=== PATIENT | female | born 1995 | race Two or more races ===

== ENCOUNTER 2025-01-01 04:34 | Emergency (ER) | payer MEDICAID, SELFPAY ==
[2025-01-01 04:37] VITALS: BMI 18.3
[2025-01-01 04:40] VITALS: BP 107/66; PULSE 113; RESP 19; TEMP 36.9; O2SAT 95
--- NOTE | 2025-01-01 04:58 | EDRME_ITS ---
Rapid Medical Screening Exam [facility] Arrival date/time: 01/01/25 04:34 Chief Complaint: Nausea/Vomiting/Diarrhea Vital signs: Vital Signs Temperature 98.5 F 01/01/25 04:40 Pulse Rate 133 H 01/01/25 04:40 Respiratory Rate 19 01/01/25 04:40 Blood Pressure 107/66 01/01/25 04:40 Pulse Oximetry (%) 95 01/01/25 04:40 Oxygen Delivery Method Room Air 01/01/25 04:40 [facility] Narrative: Nausea/vomiting since 2200 last night after eating [employer]. No sick contacts at home. No significant abdominal pain.
[2025-01-01] MEDS: ONDANSETRON ODT 4 MG TABRAP PO (05:26)
[2025-01-01 05:32] LABS: Collection Type, Urine Clean Catch
[2025-01-01] MEDS: SODIUM CHLORIDE 0.9% 1000 ML 1,000 ML 999 ML IV ×2 (05:47→07:00)
[2025-01-01 05:53] LABS: Basophils % (Auto) 0 % (0-2.5); Eosinophils % (Auto) 0 % (0-10); Hematocrit 40.4 % (36.0-46.0); Immature Granulocytes % (Auto) 0 % (0-0); Immature Granulocytes Auto 0.03 Thou/mm3 (0.00-0.00); Lymphocytes # (Auto) 0.4 Thou/mm3 (1.0-4.8); Lymphocytes % (Auto) 4 % (10-50); Mean Corpuscular HGB Conc 34.7 g/dl (31.0-37.0); Mean Corpuscular Hemoglobin 30.2 pg (25.0-35.0); Mean Corpuscular Volume 87 fL (80-100); Monocytes # (Auto) 0.3 Thou/mm3 (0.0-0.8); Monocytes % (Auto) 3 % (0-12); Neutrophils # (Auto) 9.4 Thou/mm3 (1.8-7.7); Neutrophils % (Auto) 92 % (37-80); Nucleated Red Blood Cell % 0 /100 WBC (0); Platelet Count 189 Thou/mm3 (140-440); RDW Standard Deviation 40.4 fL (36.4-46.3); Red Blood Count 4.63 Miln/mm3 (4.00-5.20); White Blood Count 10.2 Thou/mm3 (3.6-11.0)
[2025-01-01 05:53] LABS: Amphetamine/Methamp Scrn,U Negative (Negative); Barbiturate Screen,Urine Negative (Negative); Benzodiazepines Screen,Urine Negative (Negative); Benzoylecgonine Screen, Ur Negative (Negative); Fentanyl Screen,Urine Negative (Negative); Opiate Screen,Urine Negative (Negative); THC Screen,Urine Negative (Negative)
[2025-01-01 05:56] LABS: HCG Qualitative,Urine Negative
[2025-01-01 06:06] LABS: Bilirubin,Urine Negative (Negative); Blood,Urine Negative (Negative); Clarity,Urine Clear (Clear/Hazy); Color,Urine Yellow (Lt Yel-Yel); Glucose, Urine Negative (Negative); Ketones,Urine 2+ (Negative); Leukocyte Esterase,Urine Negative (Negative); Nitrite,Urine Negative (Negative); Protein,Urine Trace (Neg - Trace); RBC,Urine 3 /hpf (0-3); Specific Gravity,Urine 1.032 (1.001-1.035); Squamous Epithelial Cell,Urine 5 /hpf (0-5); Urobilinogen,Urine Negative mg/dL (0.0-1.0); WBC,Urine 1 /hpf (0-5)
[2025-01-01 06:09] VITALS: BP 90/59; PULSE 89; RESP 16; TEMP 37.4; O2SAT 98
[2025-01-01 06:09] LABS: Alanine Aminotransferase 14 U/L (10-49); Albumin, Serum 4.7 gm/dL (3.5-5.0); Albumin/Globulin Ratio 1.7 (1.2-2.2); Alkaline Phosphatase 54 U/L (46-116); Anion Gap 10 (7-16); Aspartate Amino Transferase 21 U/L (0-34); BUN/Creatinine Ratio 25 Ratio (12-20); Bilirubin,Total 1.5 mg/dL (0.3-1.2); Blood Urea Nitrogen 20 mg/dL (9-23); Calcium 9.5 mg/dL (8.3-10.6); Calcium (Corrected) 9.5 mg/dL (8.5-10.1); Carbon Dioxide 25.3 mMol/L (20.0-31.0); Chloride 106 mMol/L (98-107); Creatinine (Component) 0.8 mg/dL (0.6-1.3); Estimated Creatinine Clearance 75.6 mL/min (>60); Globulin 2.8 gm/dL (2.3-3.5); Glucose 131 mg/dL (74-106); Lipase 32 U/L (12-53); Osmolality,Calculated 285 (275-295); Potassium 3.9 mMol/L (3.4-5.1); Sodium 141 mMol/L (136-145); Total Protein 7.5 gm/dL (5.7-8.2); eGFR > 60 See Note
--- NOTE | 2025-01-01 06:24 | PD.EDNV ---
Nausea/Vomit./Diarrhea-RME/HPI General Chief complaint: Nausea/Vomiting/Diarrhea Stated complaint: VOMITING Time Seen by Provider: 01/01/25 06:21 Arrival date/time: 01/01/25 04:34 RME / HPI RME / HPI Narrative: Nausea/vomiting since 2200 last night after eating [employer]. No sick contacts at home. No significant abdominal pain. DR. RUEDA MAIN ED EVALUATION: 29 year old female with past medical history significant for appendectomy in 2016 accompanied by her father with complaints of nausea and vomiting since 830 PM yesterday. She came in at like 4 AM with nonstop vomiting. No similar symptoms in the past. Denies any abdominal pain. Last oral intake was 430 PM yesterday, ate Chipotle which she does not eat usually. She states her mouth feels dry. Patient denies any of the following: diarrhea, losing or gaining weight, abdominal pain, vaginal bleeding, dysuria/ UTI symptoms, sick contacts, or any other symptoms at this time. Denies . Patient denies any tobacco, alcohol, or substance use. Related Data Previous Rx's ?Medication ?Instructions ?Recorded ondansetron 4 mg disintegrating 4 mg PO Q8H PRN nausea and 01/01/25 tablet vomiting 4 days #10 tabs Allergies Allergy/AdvReac Type Severity Reaction Status Date / Time No Known Allergies Allergy Verified 01/01/25 04:35 Review of Systems Review of Systems Systems Reviewed: All systems reviewed, normal except as documented Narrative Review of Systems: Constitutional: DENIES: fevers; Eyes: DENIES: loss of vision; Head/Ear/Nose: DENIES: loss of hearing. Throat: DENIES: dysphagia. Cardiovascular: DENIES: chest pain, dyspnea, or syncope. Respiratory: DENIES: shortness of breath; Gastrointestinal: POSITIVES: nausea and vomiting DENIES: rectal bleeding or melena. Genitourinary: DENIES: dysuria (painful or difficult urination); Musculoskeletal: DENIES: arthralgia (pain in a joint); Skin: DENIES: rash; Neurological: DENIES: loss of function or movement; Psychiatric: DENIES: recent major life stressor, emotional problem, illicit drug use or abuse; Endocrinology: DENIES: weight change,; Hematologic/Lymphatic: DENIES: abnormal bruising. Allergic/Immunologic: DENIES: urticaria (hives). Past Medical History Past Medical History PSYCHO/SOCIAL: Positive Anxiety Surgical History OTHER SURGICAL HX: appendectomy 2016 Social History SMOKING STATUS: Never smoker SUBSTANCE USE: does not use ALCOHOL: Never ED Exam Narrative Physical exam: Physical Exam: General: The vital signs were reviewed. The patient is non-toxic, in no apparent distress and appears healthy with a patent airway, no respiratory distress and has no apparent circulatory problems. Head & Scalp: Normocephalic, atraumatic. Face: Appears normal and is without lesions, deformity. Ears: Left external pinna appears normal. Right external pinna appears normal. Eyes: The sclera is anicteric. No obvious photophobia. The Left and Right Orbit/Lid/Conjunctiva appears normal without swelling, discoloration or injection. Nose: The nose is without deformity, discharge or tenderness; Throat: Appears normal. The mucous membranes are pink and moist without exudates, redness or mass seen. The tongue appears normal. Neck: The neck is supple and no apparent mass or adenopathy. Chest: The chest wall is normal in size and symmetry and has no chest wall tenderness or crepitus. The patient displays normal ventilator effort without retractions, accessory muscle use and has adequate air movement bilaterally with no wheezes and no rales. Cardiovascular: Regular rate and rhythm; No murmurs, rubs, or gallops; Gastrointestinal: The abdomen appears normal. No obvious hernias or mass. The abdomen is soft and benign, non-distended, with no pain, no guarding and no rebound tenderness. Bowel sounds are present and normal sounding. No CVA tenderness. Genitourinary: Back/Spine: Normal inspection Extremities/Musculoskeletal/lymphatic: The bilateral upper and lower extremities are warm. There is no evidence of arterial insufficiency. There is no evidence of venous insufficiency/edema. The patient spontaneously moves bilateral upper and lower extremities with no pain and no limitation of movement. There is no apparent, injury or trauma. Skin: The skin is warm, dry and intact. No rashes. No petechia. No purpura. No abnormal bruising. The color is appropriate with no cyanosis. Mental status/Psychiatric: Mental status is appropriate for age. The patient has no apparent delusions, visual hallucinations, no apparent audible hallucinations. The patient has no apparent suicidal thoughts/ideation and no apparent homicidal thoughts/ideation. Neurological: The patient is awake, alert, interactive, cordial, cooperative and is oriented to name and situation. The patient follows commands and answers historical question with no impairment. There is no visual disturbance apparent. The pupils are equal and reactive bilaterally with normal eye movements and no diplopia The bilateral upper and lower extremities have normal strength, normal range of motion and normal functioning. The gait, station and balance appear to be baseline with no acute change Course Quality Measures none Orders Category Date Time Status IV [Insert IV] NOW Care 01/01/25 05:49 Completed CBC Stat Lab 01/01/25 05:38 Completed CMP [Comprehensive Metabolic Panel] Stat Lab 01/01/25 05:38 Completed Drug Screen,Urine Stat Lab 01/01/25 05:20 Completed HCG Qualitative,Urine Stat Lab 01/01/25 05:20 Completed Lipase Stat Lab 01/01/25 05:38 Completed UA [Urinalysis] Stat Lab 01/01/25 05:20 Completed Ondansetron Inj [Zofran Inj] Med 01/01/25 10:32 Discontinued 4 mg IV X1 ONE Ondansetron Odt [Zofran Odt] Med 01/01/25 04:59 Discontinued 4 mg PO X1 ONE Sodium Chloride 0.9% 1000 ml [Ns] 1,000 ml Med 01/01/25 04:59 Discontinued IV 999 mls/hr Sodium Chloride 0.9% 1000 ml [Ns] 1,000 ml Med 01/01/25 06:51 Discontinued IV 999 mls/hr Reevaluation(s) Reevaluation #1: Patient is still nauseous. Time: 10:33 Vital Signs Vital signs: Vital Signs Temperature 98.5 F 01/01/25 04:40 Pulse Rate 113 H 01/01/25 04:40 Respiratory Rate 19 01/01/25 04:40 Blood Pressure 107/66 01/01/25 04:40 Pulse Oximetry (%) 95 01/01/25 04:40 Oxygen Delivery Method Room Air 01/01/25 04:40 Nausea/Vomiting/Diarrhea MDM Narrative MDM Narrative:: I, Grisel Munoz am scribing for and in the presence of Dr. Rueda. Patient is a 29-year-old with vomiting with multiple episodes prior to arrival which patient reports 8 episodes of vomiting that she arrived at 4:00 and had 2 more episodes since she arrived. Patient has her nausea better controlled since she got some Zofran. She has had surgery in 2016 with appendicitis. She has no other health problems. She does not smoke or drink or use any drugs. She is describing no abdominal pain at this time. Her mouth is dry. Medical workup included Urine drug screen which was negative urinalysis came back positive for some ketones and specific gravity is elevated 1032. Competence of metabolic panel is essentially unremarkable total bilirubin is slightly elevated 1.5 glucose 131 electrolytes and renal function are within normal limits white count came back at 10.2 hemoglobin of 14.0. Clinically patient's mouth is still dry her last blood pressure at 6:00 was 90/59 with a pulse of 89 which is improved from a pulse of 113 when she initially arrived. I think she needs a second liter of fluid which was ordered and will reassess her and try some oral fluids and reevaluate after that. The patient has significant vomiting with dehydration clinically improved as of 0625 hrs. Second liter was ordered and pending Recheck after the second liter showed her to be feeling a little bit better but still nauseated so we gave her second dose of Zofran and encouraged fluids and and Jell-O and she consumed those without any vomiting. At 1200 hrs. she is feeling still little bit better not perfect but no vomiting no abdominal pain she is ambulatory her blood pressure normally runs in the 90s and is currently there. She was advised at great length to monitor weights return if losing weight getting dehydrated or if she begins to have intractable vomiting or pain or worse in any other way. Patient data External records reviewed:: [facility] previous records (Reviewed last ED visit dated 03/03/18, discharged with the following: Chest pain) Clinical information provided by:: patient Social determinants that could affect healthcare access:: none Patient has the following chronic illnesses:: Anxiety and appendectomy 2016. How is presenting disease/condition affected by chronic disease/condition?: uneffected by Evaluation data The following diagnostics were reviewed and interpreted by me:: lab results Lab and/or radiology exams considered but not ordered:: none Interpretation Summary: See under MDM narrative. Medications / Prescriptions Medications / Prescriptions considered but not ordered:: none Medication administrations:: Medication Administration History Discontinued Medications Sodium Chloride (Ns) 1,000 mls @ 999 mls/hr IV .Q1H1M ONE Stop: 01/01/25 05:59 Last Infusion: 01/01/25 06:57 Dose: Infused Documented By: Admin: 01/01/25 05:47 Dose: 999 mls/hr Documented By: CCT Sodium Chloride (Ns) 1,000 mls @ 999 mls/hr IV .Q1H1M ONE Stop: 01/01/25 07:51 Last Infusion: 01/01/25 08:10 Dose: Infused Documented By: Admin: 01/01/25 07:00 Dose: 999 mls/hr Documented By: CCT Ondansetron HCl (Ondansetron Odt 4 Mg Tabrap) 4 mg PO X1 ONE; Protocol Stop: 01/01/25 05:00 Last Admin: 01/01/25 05:26 Dose: 4 mg Documented By: CVL Ondansetron HCl (Ondansetron Inj 2 Mg/Ml Inj 2 Ml) 4 mg IV X1 ONE; Protocol Stop: 01/01/25 10:33 Last Admin: 01/01/25 10:46 Dose: 4 mg Documented By: LP see above Consultations Consultation(s) initiated? (list below): No Diagnosis Nausea Differential Diagnosis: traveler's diarrhea, food poisoning, gastroenteritis and dehydration Most likely diagnosis given after review of the tests above:: Nausea and vomiting Admission Indicated Admission indicated?: not indicated Admission Request Was there a request for admission?: No Disposition Plan Disposition Plan: Discharge Discharge Attestation Discharge Attestation: The patient and all family members were given an opportunity to ask questions and understood the discharge instructions. Discharge instructions specifically effects, indications for sooner follow up or return to the emergency department, and the expected course of current diagnosis. Patient condition: Stable Discharge Plan Plan Patient Disposition: HOME (Self Care) Prescriptions/Referrals Prescriptions/Med Rec: New ondansetron 4 mg tablet,disintegrating 4 mg PO Q8H PRN (Reason: nausea and vomiting) 4 Days Qty: 10 0RF Referrals: Bing Urbina FNP-C [Primary Care Provider] - In 1 week Problem List Clinical Impression: Nausea & vomiting Impression comment: Presumed viral illness as no other etiology is apparent. Patient/Caregiver Discharge Instructions Education Materials: ED Vomiting (Adult) Additional Instructions: The cause of your nausea and vomiting most likely is a viral illness. You should be getting better in 2 to 3 days. But if you are getting worse in any way with intractable vomiting weight loss dehydration or bleeding please return for reevaluation Print Language: Belarusian Stand Alone Forms: Alessandra Award Info., Patient Portal Info Letter
--- NOTE | 2025-01-01 07:15 | PC.NURSE ---
PT RESTING QUIETLY IN ROOM W/ FATHER AT BEDSIDE. PT STATES SHE FEELS A LOT BETTER; DENIES ANY NAUSEA AT THIS TIME. VSS. WILL CONT TO MONITOR.
[2025-01-01 10:25] VITALS: BP 100/65; PULSE 110; RESP 17; TEMP 36.7; O2SAT 98
[2025-01-01] MEDS: ONDANSETRON INJ 2 MG/ML INJ 2 ML 4 MG IV (10:46)
[2025-01-01 12:51] VITALS: BP 96/62; PULSE 113; RESP 16; TEMP 37.9; O2SAT 99
--- NOTE | 2025-01-01 12:53 | PC.NURSE ---
PT DISCHARGED HOME VIA PRIVATE VEHICLE ACCOMPANIED BY FATHER; PT AMB TO ED ENTRANCE. IV DC'D W/O DIFFICULTY; PT TOLERATED WELL. D/C INST GIVEN W/ UNDERSTANDING EXPRESSED AND QUESTIONS ANSWERED.
== END 2025-01-01 12:51 | disposition home or self-care (01) ==
PROVIDERS: Physician Assistant; Emergency Provider Emergency Medicine
DX: R11.2 Nausea with vomiting, unspecified (principal)
CPT/HCPCS: 36415; 80053; 80307; 81001; 81025; 83690; 85025; 96360; 96361; 99284; J2405; J7030; Q0162